=== PATIENT | female | born 1945 ===

== ENCOUNTER 2023-10-06 14:31 | Inpatient (IN) | payer MEDICARE, BC ==
[~2023-10-06] VITALS: Ht 157.5 cm; Wt 44.5 kg
[2023-10-06] MEDS ORDERED: MIRT-93 PO (14:56)
[2023-10-06] MEDS ORDERED: METF-440 PO (14:56)
[2023-10-06] MEDS ORDERED: MELO-105 PO (14:56)
[2023-10-06] MEDS ORDERED: QUET50TA24 PO (14:56)
[2023-10-06] MEDS ORDERED: LEVO125T8 PO (14:56)
[2023-10-06] MEDS ORDERED: MAGNESIUM HYDROXIDE 30 ML LIQUID UDC PO PRN (15:45)
[2023-10-06] MEDS: BLOOD SUGAR DIAGNOSTIC 1 EACH STRIP VI ONE (16:06)
[2023-10-06 16:56] VITALS: BP 141/77; TEMP 97.7; O2SAT 98
[2023-10-06] MEDS: QUETIAPINE FUMARATE 25 MG TABLET PO SCH (20:30)
[2023-10-06] MEDS: MIRTAZAPINE 15 MG TABLET PO SCH (20:30)
[2023-10-07 07:47] VITALS: BP 120/57; TEMP 97.6; O2SAT 97
[2023-10-07 08:55] LABS: ALANINE AMINOTRANSFERASE 23 U/L (14-59); ALBUMIN 4.3 g/dL (3.4-5.0); ALKALINE PHOSPHATASE 100 U/L (50-136); ASPARTATE AMINOTRANSFERASE 18 U/L (15-37); BILIRUBIN,TOTAL 0.9 mg/dL (0.2-1.0); CALCIUM 9.7 mg/dL (8.5-10.1); CARBON DIOXIDE 29 mmol/L (21-32); CHLORIDE 105 mmol/L (98-107); CREATININE 0.7 mg/dL (0.6-1.3); GLUCOSE 120 mg/dL (74-106); POTASSIUM 3.2 mmol/L (3.5-5.1); SODIUM SERUM 144 mmol/L (136-145); TOTAL PROTEIN, SERUM 8.2 g/dL (6.4-8.2); UREA NITROGEN, BLOOD 18 mg/dL (7-18)
[2023-10-07] MEDS: CLONAZEPAM 0.5 MG TABLET PO PRN (09:09)
[2023-10-07] MEDS ORDERED: diphenhydrAMINE 50 MG/1 ML VIAL IM STA (09:57)
[2023-10-07] MEDS ORDERED: HALOPERIDOL LACTATE 5 MG/1 ML VIAL IM ONE (10:00)
[2023-10-07] MEDS: POTASSIUM CHLORIDE 20 MEQ TAB.PRT.SR PO ONE (10:08)
[2023-10-07] MEDS: LEVOTHYROXINE SODIUM 125 MCG TABLET PO SCH (12:12)
[2023-10-07 16:47] VITALS: BP 104/63; TEMP 97.6; O2SAT 99
[2023-10-07] MEDS: MELOXICAM 7.5 MG TABLET PO SCH (19:02)
[2023-10-07 20:00] VITALS: BP 137/65; TEMP 98; O2SAT 98
[2023-10-07] MEDS: TEMAZEPAM 7.5 MG CAPSULE PO PRN (22:50)
[2023-10-08 08:00] VITALS: BP 123/60; TEMP 97.7; O2SAT 97
[2023-10-08] MEDS: METFORMIN HCL 500 MG TABLET PO SCH (08:26)
[2023-10-08] MEDS ORDERED: POTASSIUM CHLORIDE 20 MEQ TAB.PRT.SR PO ONE (11:30)
[2023-10-08] MEDS: GLUCERNA SHAKE 237 ML CAN PO SCH (13:00)
[2023-10-08 15:46] VITALS: BP 108/60; TEMP 97.8; O2SAT 97
[2023-10-08] MEDS: ACETAMINOPHEN 325 MG TABLET PO PRN (19:55)
[2023-10-08 19:56] VITALS: BP 100/66; TEMP 97.9; O2SAT 100
[2023-10-09 09:56] VITALS: BP 125/69; TEMP 98; O2SAT 99
[2023-10-09 15:07] VITALS: BP 114/54; TEMP 98.2; O2SAT 98
[2023-10-09 20:00] VITALS: BP 129/63; TEMP 97.5; O2SAT 99
[2023-10-09 23:30] VITALS: BP 108/72; O2SAT 100
[2023-10-10 08:00] VITALS: BP 129/64; TEMP 97.7; O2SAT 98
[2023-10-10 16:00] VITALS: BP 100/53; TEMP 98.3; O2SAT 98
[2023-10-11 08:04] VITALS: BP 131/61; TEMP 98; O2SAT 98
[2023-10-11 15:09] VITALS: BP 122/60; TEMP 98; O2SAT 98
[2023-10-11 20:08] VITALS: BP 130/62; TEMP 97.9; O2SAT 98
[2023-10-12 07:30] VITALS: BP 139/64; TEMP 98; O2SAT 99
[2023-10-12] MEDS: GLUCERNA SHAKE 237 ML CAN PO SCH (13:15)
[2023-10-12 16:32] VITALS: BP 102/70; TEMP 98.2; O2SAT 99
[2023-10-12] MEDS: MAG HYDROX/AL HYDROX/SIMETH 30 ML LIQUID UDC PO PRN (18:34)
[2023-10-12 20:02] VITALS: BP 116/64; TEMP 98.1; O2SAT 98
[2023-10-13 07:49] VITALS: BP 114/58; TEMP 97.8; O2SAT 97
[2023-10-13 16:16] VITALS: BP 105/60; TEMP 97.9; O2SAT 97
[2023-10-13 20:00] VITALS: BP 112/55; TEMP 98; O2SAT 96
[2023-10-13] MEDS: QUETIAPINE FUMARATE 25 MG TABLET PO SCH (20:11)
[2023-10-13] MEDS: MELATONIN 3 MG TABLET PO SCH (20:14)
[2023-10-14 08:34] VITALS: BP 118/65; TEMP 98.3; O2SAT 98
[2023-10-14 16:33] VITALS: BP 126/57; TEMP 98.1; O2SAT 98
[2023-10-14 19:54] VITALS: BP 116/64; TEMP 98.1; O2SAT 96
[2023-10-15 07:50] VITALS: BP 120/57; TEMP 98.5; O2SAT 97
[2023-10-15 15:36] VITALS: BP 111/58; TEMP 98.2; O2SAT 97
[2023-10-15 19:55] VITALS: BP 118/55; TEMP 98.1; O2SAT 96
[2023-10-16 08:02] VITALS: BP 131/62; TEMP 98; O2SAT 96
[2023-10-16 15:19] VITALS: BP 125/82; TEMP 98; O2SAT 99
[2023-10-16 19:50] VITALS: BP 136/60; TEMP 97.9; O2SAT 96
[2023-10-17 07:41] VITALS: BP 136/62; TEMP 98.2; O2SAT 98
== END 2023-10-17 12:30 | DRG 885 ==
LOC: ER 14:36 → GPS 15:27
PROVIDERS: ADMIT Psychiatry & Neurology Psychiatry; ATTEND Nurse Practitioner Acute Care
DX: F32.3 Major depressive disorder, single episode, severe with psychotic features (principal); F03.911 Unspecified dementia, unspecified severity, with agitation; E44.0 Moderate protein-calorie malnutrition; Z68.1 Body mass index [BMI] 19.9 or less, adult; F03.94 Unspecified dementia, unspecified severity, with anxiety; F03.92 Unspecified dementia, unspecified severity, with psychotic disturbance; E03.9 Hypothyroidism, unspecified; E11.9 Type 2 diabetes mellitus without complications; E87.6 Hypokalemia; Z79.899 Other long term (current) drug therapy; Z79.890 Hormone replacement therapy; Z79.84 Long term (current) use of oral hypoglycemic drugs
CPT/HCPCS: 36415; 70450